=== PATIENT | female | born 1955 | race Caucasian/White ===

== ENCOUNTER → 2023-12-27 07:35 | Outpatient (REF) | payer MEDICARE, BC, SELFPAY | LOC: MRI 07:35 | PROVIDERS: ATTENDING PHYSICIAN Otolaryngology; FAMILY PHYSICIAN Family Medicine | DX: H93.11 Tinnitus, right ear (principal) | CPT/HCPCS: 70553; A9575 ==

== ENCOUNTER → 2024-05-17 06:49 | Day surgery (SDC) | payer MEDICARE, BC, SELFPAY ==
[2024-05-17] VITALS (9 sets, daily range): BP systolic 92–138; BP diastolic 40–79; BMI 20.6
[2024-05-17] MEDS: CYSVIEW KIT 100 MG INTRAVES (12:14)
[2024-05-17] MEDS: NORMOSOL-R/PLASMALYTE-A 1000 IV (12:14)
[2024-05-17] MEDS: DETROL LA 4 MG PO (13:42)
[2024-05-17] MEDS: Pyridium 200 MG PO (13:42)
== END ==
LOC: SDS 06:49
PROVIDERS: ATTENDING PHYSICIAN Surgery
DX: C67.8 Malignant neoplasm of overlapping sites of bladder (principal)
CPT/HCPCS: 52204; C9738; 88305; 88342; A9589

== ENCOUNTER → 2024-12-27 07:53 | Outpatient (REF) | payer MEDICARE, BC, SELFPAY ==
[2024-12-27 09:16] LABS: Hematocrit 36.7 % (37.0-47.0); Hemoglobin 12.6 g/dL (12.0-16.0); Mean Corp Hgb Conc. 34.3 g/dL (33.0-37.0); Mean Corpuscular Hgb 30.1 pg (27.0-31.0); Mean Corpuscular Volume 87.8 fL (81.0-99.0); Mean Platelet Volume 11.4 fL (7.4-10.4); Platelet Count 210 10^3/uL (130-400); Red Blood Cell Count 4.18 10^6/uL (4.20-5.40); Red Cell Dist. Width 13.2 % (11.5-14.5); White Blood Cell Count 3.6 10^3/uL (4.8-10.8)
[2024-12-27 09:31] LABS: Blood Urea Nitrogen 13 mg/dl (7-17); Calcium 9.6 mg/dl (8.4-10.2); Carbon Dioxide 29 mmol/L (22-30); Chloride 101 mmol/L (98-107); Glucose 83 mg/dl (70-99); Potassium 4.2 mmol/L (3.5-5.1); Sodium 136 mmol/L (135-145); eGFR > 60.00
== END ==
LOC: SDSPAT 07:53
PROVIDERS: ATTENDING PHYSICIAN Surgery; FAMILY PHYSICIAN Family Medicine
DX: Z01.818 Encounter for other preprocedural examination (principal)
CPT/HCPCS: 36415; 80048; 85027; 93005

== ENCOUNTER 2025-01-07 06:09 | Day surgery (SDC) | payer MEDICARE, BC, SELFPAY ==
[2024-12-27 14:12] VITALS: BMI 19.8
[2025-01-07] VITALS (7 sets, daily range): BP systolic 116–142; BP diastolic 61–81; BMI 19.8
[2025-01-07] MEDS: CYSVIEW KIT 100 MG INTRAVES (12:15)
[2025-01-07] MEDS: NORMOSOL-R/PLASMALYTE-A 1000 IV (12:16)
[2025-01-07] MEDS: VALIUM INJECTION 2 MG IV (13:55)
[2025-01-07] MEDS: Pyridium 200 MG PO (13:55)
[2025-01-07] MEDS: DETROL LA 4 MG PO (13:55)
[2025-01-07] MEDS: SUBLIMAZE 50 MCG IV (14:07)
== END 2025-01-07 15:23 | disposition home or self-care (01) ==
LOC: SDS 06:09
PROVIDERS: ATTENDING PHYSICIAN Surgery
DX: D09.0 Carcinoma in situ of bladder (principal); N30.20 Other chronic cystitis without hematuria
CPT/HCPCS: 52235; C9738; 88307; A9589